=== PATIENT | female | born 1985 | race Caucasian/White ===

== ENCOUNTER 2022-06-12 14:01 | Emergency (ER) | payer MEDICAID ==
[~2022-06-12] VITALS: Ht 160 cm; Wt 111.4 kg
[~2022-06-12 14:01] MED LIST: AZEL6DRO LEFTEYE; ONDA8TAB6 PO
[2022-06-12 14:11] VITALS: BP 233/123
[2022-06-12] MEDS ORDERED: neomy sulf/polymyx B sulf/HC 10ml otic suspension LEFT EAR ONE (19:50)
[2022-06-12] MEDS ORDERED: HYDROcodone/acetaminophen 5mg/325mg tablet PO ONE (20:15)
== END 2022-06-12 20:24 | disposition home or self-care (01) ==
LOC: ER 14:01
DX: H60.92 Unspecified otitis externa, left ear (principal); H92.02 Otalgia, left ear; G43.909 Migraine, unspecified, not intractable, without status migrainosus; I10 Essential (primary) hypertension; Z72.89 Other problems related to lifestyle; Z79.899 Other long term (current) drug therapy
CPT/HCPCS: 99283